=== PATIENT | female | born 1985 | race Asian ===

== ENCOUNTER 2016-05-03 22:03 | Emergency (ER) | payer MEDICAID ==
[~2016-05-03] VITALS: Ht 175.3 cm; Wt 149.7 kg
[2016-05-03 22:50] LABS: Basophils # (auto) 0 uL; Basophils % (auto) 0.2 % (0.0-2.0); Eosinophils # (auto) 0.4 uL; Eosinophils % (auto) 3.6 % (0.0-7.0); Hemoglobin 15.5 g/dL (12.2-16.2); Lymphocytes # (auto) 1.5 uL; Lymphocytes % (auto) 14.7 % (10.0-50.0); Mean Corpuscular Hemoglobin 27.8 pg (28.0-32.0); Mean Corpuscular Hgb Conc. 32.3 g/dL (32.0-36.0); Mean Platelet Volume 8.1 fL (7.4-10.4); Monocytes # (auto) 0.6 uL; Monocytes % (auto) 5.3 % (0.0-12.0); Neutrophils % (auto) 76.2 % (37.0-80.0); Platelet Count (auto) 414 10^3/uL (140-450); Red Cell Distribution Width 13.2 % (11.6-16.0); White Blood Cell 10.6 10^3/uL (4.4-10.8)
[2016-05-03 23:09] LABS: Albumin 3.6 g/dL (3.4-5.0); BUN/Creatinine Ratio 19.5; Calcium 8.8 mg/dL (8.5-10.1); Potassium 3.6 mmol/L (3.5-5.1)
[2016-05-03 23:12] LABS: Bilirubin, Total 0.3 mg/dL (0.2-1.0); Total Protein 7.6 g/dL (6.4-8.2)
[2016-05-03 23:37] LABS: Urine Bilirubin Negative (Negative); Urine Blood Negative /uL (Negative); Urine Ca Oxalate Crystal MANY (None Seen); Urine Color Yellow (Yellow); Urine Glucose Normal (Normal); Urine Granular Cast FEW /lpf (0); Urine Hyaline Cast FEW /lpf (0 - 2); Urine Ketone Negative (Negative); Urine Mucus FEW (None Seen); Urine Nitrite Negative (Negative); Urine RBC 3 /hpf (0 - 4); Urine Squamous Epithelial Cell FEW /hpf (<5); Urine Urobilinogen Normal (Negative); Urine pH 5.5 (5.0-8.0)
[2016-05-04 03:47] VITALS: BP 145/81
[2016-05-04] MEDS ORDERED: ONDANSETRON HCL 4 MG/2 ML VIAL IV ONE (04:15)
[2016-05-04] MEDS ORDERED: SODIUM CHLORIDE 0.9% 1,000 ML IV ONE (04:15)
== END 2016-05-04 06:11 | disposition home or self-care (01) ==
LOC: ER 22:05
DX: K52.9 Noninfective gastroenteritis and colitis, unspecified (principal); E86.0 Dehydration; R73.9 Hyperglycemia, unspecified; I10 Essential (primary) hypertension; F12.10 Cannabis abuse, uncomplicated
CPT/HCPCS: 36415; 80053; 81001; 81025; 85025; 96361; 96374; 99285; J2405; J7030

== ENCOUNTER 2017-01-01 06:02 | Emergency (ER) | payer MEDICAID ==
[~2017-01-01] VITALS: Ht 175.3 cm; Wt 117.9 kg
[2017-01-01 06:24] VITALS: BP 135/68
[2017-01-01] MEDS ORDERED: KETOROLAC TROMETH 60MG/2ML VIAL IM ONE (07:00)
== END 2017-01-01 07:57 | disposition home or self-care (01) ==
LOC: ER 06:02
DX: S32.2XXA Fracture of coccyx, initial encounter for closed fracture (principal); E27.8 Other specified disorders of adrenal gland; I10 Essential (primary) hypertension; W17.89XA Other fall from one level to another, initial encounter; Y93.01 Activity, walking, marching and hiking; Y99.8 Other external cause status; Y92.89 Other specified places as the place of occurrence of the external cause
CPT/HCPCS: 72131; 81025; 96372; 99284; J1885

== ENCOUNTER 2018-05-17 10:16 | Emergency (ER) | payer MEDICAID ==
[~2018-05-17] VITALS: Ht 175.3 cm; Wt 127.0 kg
[2018-05-17 11:06] VITALS: BP 157/97
[2018-05-17] MEDS ORDERED: KETOROLAC TROMETH 60MG/2ML VIAL IM ONE (11:45)
[2018-05-17] MEDS ORDERED: HYDROcodone-ACET 5/325MG TAB PO ONE (12:30)
== END 2018-05-17 12:37 | disposition home or self-care (01) ==
LOC: ER 10:16
DX: M54.42 Lumbago with sciatica, left side (principal)
CPT/HCPCS: 96372; 99283; J1885

== ENCOUNTER 2021-10-14 12:29 | Emergency (ER) | payer MEDICAID ==
[~2021-10-14] VITALS: Ht 175.3 cm; Wt 160.0 kg
[2021-10-14 13:23] LABS: Basophils # (auto) 0.1 10 ^3/uL (0-0.2); Basophils % (auto) 0.6 % (0.0-2.0); Eosinophils # (auto) 0.2 10 ^3/uL (0-0.8); Eosinophils % (auto) 2.2 % (0.0-7.0); Hematocrit 43.9 % (36.0-46.0); Hemoglobin 14.5 g/dL (12.2-16.2); Lymphocytes # (auto) 1.5 10 ^3/uL (0.4-5.4); Lymphocytes % (auto) 16.9 % (10.0-50.0); Mean Corpuscular Hemoglobin 27.8 pg (28.0-32.0); Mean Corpuscular Hgb Conc. 32.9 g/dL (32.0-36.0); Mean Corpuscular Volume 84.4 fL (80.0-100.0); Monocytes # (auto) 0.5 10 ^3/uL (0-1.3); Monocytes % (auto) 5.4 % (0.0-12.0); Neutrophils # (auto) 6.8 10 ^3/uL (1.6-8.6); Neutrophils % (auto) 74.9 % (37.0-80.0); Red Cell Distribution Width 13.1 % (11.8-14.3); White Blood Cell 9.1 10^3/uL (4.4-10.8)
[2021-10-14 13:57] LABS: Albumin 3.4 g/dL (3.4-5.0); Calcium 8.1 mg/dL (8.5-10.1); Potassium 3.6 mmol/L (3.5-5.1)
[2021-10-14 14:00] LABS: BUN/Creatinine Ratio 13.8; Bilirubin, Total 0.5 mg/dL (0.2-1.0); Total Protein 7.1 g/dL (6.4-8.2)
[2021-10-14 14:01] VITALS: BP 110/56
[2021-10-14 15:18] LABS: Urine Bacteria NONE SEEN /hpf (None Seen); Urine Blood TRACE /uL (Negative); Urine Hyaline Cast FEW /lpf (0 - 2); Urine Mucus FEW (None Seen); Urine Specific Gravity 1.027 (1.001-1.035); Urine WBC 3 /hpf (0 - 5)
== END 2021-10-14 16:07 | disposition home or self-care (01) ==
LOC: ER 12:29 → EDBD 12:29 → ER 16:07
DX: R07.89 Other chest pain (principal); F41.8 Other specified anxiety disorders; I10 Essential (primary) hypertension
CPT/HCPCS: 36415; 71045; 80053; 81001; 83735; 84484; 85025; 93005

== ENCOUNTER 2021-12-07 07:52 | Emergency (ER) | payer MEDICAID ==
[~2021-12-07] VITALS: Ht 175.3 cm; Wt 142.4 kg
[2021-12-07] MEDS ORDERED: AMOX-277 PO (08:28)
[2021-12-07 09:56] VITALS: BP 112/78
== END 2021-12-07 08:28 | disposition home or self-care (01) ==
LOC: ER 07:52
DX: J06.9 Acute upper respiratory infection, unspecified (principal); R91.1 Solitary pulmonary nodule; F41.9 Anxiety disorder, unspecified; I10 Essential (primary) hypertension; Z20.822 Contact with and (suspected) exposure to COVID-19
CPT/HCPCS: 36415; 71045

== ENCOUNTER 2023-07-10 08:46 | Emergency (ER) | payer MEDICAID ==
[~2023-07-10] VITALS: Ht 175.3 cm; Wt 145.3 kg
[~2023-07-10 08:46] MED LIST: AMOX875T4 PO
[2023-07-10] MEDS ORDERED: GUAI1SOL3 PO (10:38)
[2023-07-10] MEDS ORDERED: AZIT-185 PO (10:38)
[2023-07-10] MEDS ORDERED: FLUT1SPR5 (10:38)
[2023-07-10] MEDS ORDERED: CETI5TAB6 PO (10:38)
[2023-07-10 11:00] VITALS: BP 138/63; PULSE 80; RESP 18; TEMP 99.1; O2SAT 95
[2023-07-10] MEDS ORDERED: BENZ100C97 PO (12:37)
[2023-07-10] MEDS ORDERED: PROM1SOL4 PO (12:37)
== END 2023-07-10 12:51 | disposition home or self-care (01) ==
LOC: ER 08:46
DX: J20.9 Acute bronchitis, unspecified (principal); I10 Essential (primary) hypertension

== ENCOUNTER 2024-01-26 14:29 | Emergency (ER) | payer MEDICAID ==
[~2024-01-26] VITALS: Ht 175.3 cm; Wt 144.5 kg
[~2024-01-26 14:29] MED LIST changes: +AZIT-185 PO; +BENZ100C97 PO; +CETI5TAB6 PO; +CLIN2CRE7 VG; +FLUT1SPR5; +GUAI1SOL3 PO; +MET500T PO; +PROM1SOL4 PO
--- NOTE | 2024-01-26 16:09 | ED.PDOC ---
History of present illness HPI Comments This is a 38-year-old female who comes into the ED with chief complain of hyperglycemia. She has a past medical history relevant for type 2 diabetes, hypertension, hyperlipidemia, morbid obesity, anxiety.. She has a tubal ligation, LMP was last month, she is irregular. Patient states that her fingerstick glucose yesterday was around the 300s, and today was on the 200s, she stated that she ran out of her Ozempic and is currently only taking metformin a 1000 mg p.o. b.i.d.. Besides that she is also complaining of dysuria, urinary frequency and urgency. She is also having a mild headache, she stated that she suffers on migraine. She currently denies any significant chest pain, shortness of breath, dizziness, lightheadedness, abdominal pain, nausea, vomiting, diarrhea, constipation. Chief Complaint: Hyperglycemia Time Seen by MD: 14:50 Primary Care Provider: AILYN History of present illness: Nurses Notes Allergies: Coded Allergies: NO KNOWN ALLERGIES (Unverified , 05/19/12) Home Meds Active Scripts Clindamycin Phosphate (Clindamycin Phosphate) 2 % Cre, 1 APPLIC VG QPM for 7 Days, #40 GRAMS Prov:RAMA RODRIGUEZ PAC 07/30/23 Metronidazole (Metronidazole) 500 Mg Tab, 500 MG PO BID for 7 Days, #14 TAB Prov:RAMA RODRIGUEZ PAC 07/30/23 Benzonatate (Benzonatate) 100 Mg Cap, 1 CAP PO TID for 10 Days, #30 CAP 0 Refills Prov:KIMBERLY BALTAZAR NP 07/10/23 Promethazine-Dm (Promethazine Dm 6.25-15 mg/5Ml) 1 Armida Armida, 5 ML PO TID for 10 Days, #150 ML 0 Refills Prov:KIMBERLY BALTAZAR NP 07/10/23 Cetirizine Hcl (Cetirizine Hcl) 5 Mg Tab, 10 MG PO DAILY for 30 Days, #60 TAB 1 Refill Prov:KIMBERLY BALTAZAR NP 07/10/23 Fluticasone Propionate (Nasal) (Flonase Allergy Relief) 50 Mcg/Act Spr, 50 MCG NA DAILY for 30 Days, #1 BOTTLE 1 Refill Prov:KIMBERLY BALTAZAR NP 07/10/23 Azithromycin (ZITHROMAX TABLET) 250 Mg Tb, 250 MG PO DAILY for 5 Days, #6 TAB 0 Refills Take 2 tablets on day one then 1 tablet daily for the remaining course Prov:KIMBERLY BALTAZAR ACCOUNTING SYSTEMS MANAGER 07/10/23 Amoxicillin & Pot Clavulanate (Amoxicillin/Potassium Cla) 875 Mg Tab, 1 TAB PO BID for 7 Days, #14 TAB 0 Refills Prov:SYED SORENSON 12/07/21 Reported Medications Guaifenesin-Codeine (Codeine/Guaifenesin 100-10 mg/5Ml) 1 Armida Armida, 5 ML PO BIDP PRN for 5 Days, #50 ML 0 Refills 07/10/23 Information Source: Patient Mode of Arrival: Ambulatory Past Medical History PAST MEDICAL HISTORY: Anxiety, DM, HTN Surgical History: Denies all surgeries MEDIA RELATIONS INTERN History: No Pertinent MEDIA RELATIONS INTERN History Family History Family History: No family hx of Cancer, No family hx of DM, No family hx of HTN Social History Smoker: Non-Smoker Alcohol: Occasionally Drugs: Denies Drug Use Lives In: Home Constitutional: denies: chills, diaphoresis, fatigue, fever, malaise, sweats, weakness, others EENTM: denies: blurred vision, double vision, ear bleeding, ear discharge, ear drainage, ear pain, ear ringing, eye pain, eye redness, hearing loss, mouth pain, mouth swelling, nasal discharge, nose bleeding, nose congestion, nose pain, photophobia, tearing, throat pain, throat swelling, voice changes, others Respiratory: denies: cough, hemoptysis, orthopnea, SOB at rest, shortness of breath, SOB with excertion, stridor, wheezing, others Cardiovascular: denies: chest pain, dizzy spells, diaphoresis, Dyspnea on exertion, edema, irregular heart beat, left arm pain, lightheadedness, palpitations, PND, syncope, others Gastrointestinal: denies: abdomen distended, abdominal pain, blood streaked bowels, constipated, diarrhea, dysphagia, difficulty swallowing, hematemesis, melena, nausea, poor appetite, poor fluid intake, rectal bleeding, rectal pain, vomiting, others Genitourinary: reports: burning, dysuria, flank pain, frequency, urgency; denies: abnormal vagina bleeding, dyspareunia, hematuria, incontinence, pain, , vagina discharge, others Neurological: denies: dizziness, fainting, headache, left sided numbness, left sided weakness, numbness, paresthesia, pre-existing deficit, right sided numbness, right sided weakness, seizure, speech problems, tingling, tremors, weakness, others Musculoskeletal: denies: back pain, gout, joint pain, joint swelling, muscle pain, muscle stiffness, neck pain, others Integumetry: denies: bruises, change in color, change in hair/nails, dryness, laceration, lesions, lumps, rash, wounds, others Allergic/Immunocompromised: denies: Difficulty Healing, Frequent Infections, Hives, Itching, others Hematologic/Lymphatic: denies: anemia, blood clots, easy bleeding, easy bruising, swollen glands, others Endocrine: denies: excessive hunger, excessive sweating, excessive thirst, excessive urination, flushing, intolerance to cold, intolerance to heat, unexplained weight gain, unexplained weight loss, others Psychiatric: denies: anxiety, bipolar disorder, depression, hopeless, panic disorder, schizophrenia, sleepless, suicidal, others Physical Exam General Appearance: No Apparent Distress, Normal HEENT: Normal ENT Inspection, Pharynx Normal, TMs Normal Neck: Full Range of Motion, Non-Tender, Normal, Normal Inspection Respiratory: Chest Non-Tender, Lungs Clear, No Accessory Muscle Use, No Respiratory Distress, Normal Breath Sounds Cardiovascular: No Edema, No JVD, No Murmur, No Gallop, Normal Peripheral Pulses, Regular Rate/Rhythm Breast Exam: Deferred Gastrointestinal: No Organomegaly, Non Tender, No Pulsatile Mass, Normal Bowel Sounds, Soft Genitalia: Deferred Pelvic: Deferred Rectal: Deferred Extremities: No calf tenderness, Normal capillary refill, Normal inspection, Normal range of motion, Non-tender, No pedal edema Neurologic: Alert, audio visual secretary II-XII nml as Tested, No Motor Deficits, Normal Affect, Normal Mood, No Sensory Deficits Cerebellar Function: Normal Reflexes: NOT DONE Skin: Dry, Normal Color, Warm Lymphatic: No Adenopathy Was a procedure done? Was a procedure done?: No Differential Diagnosis (DM) Differential Diagnosis: Electrolyte Abnormality, Hyperglycemia, UTI X-Ray, Labs, Meds, VS Vital Signs Date Time Temp Pulse Resp B/P (MAP) Pulse Ox O2 Delivery O2 Flow Rate FiO2 01/26/24 16:36 98.5 82 18 125/79 (94) 95 98.5 118/24 16:36 82 18 95 Room Air 01/26/24 15:44 98.2 94 17 150/88 (108) 98 98.2 01/26/24 15:36 98.2 84 20 150/88 (108) 98 Lab Test 01/26/24 16:30 01/26/24 16:15 01/26/24 15:27 Range/Units Urine Color Light-yellow Yellow Urine Clarity Clear Clear Urine pH 5.5 5.0-9.0 Urine Specific [place] 1.020 1.001-1.035 Urine Protein Trace H Negative Urine Ketones Negative Negative Urine Blood Negative Negative /uL Urine Nitrite Negative Negative Urine Bilirubin Negative Negative Urine Urobilinogen Normal Negative mg/dL Urine Leukocyte Esterase Negative Negative /uL Urine RBC 2 0 - 4 /hpf Urine WBC 1 0 - 5 /hpf Urine Squamous Epithelial Cells Few <5 /hpf Urine Bacteria None seen None Seen /hpf Urine Hyaline Casts Few 0 - 2 /lpf Urine Mucus Few None Seen Urine Glucose Normal Normal mg/dL White Blood Count 11.8 H 4.4-10.8 10^3/uL Red Blood Count 5.14 4.0-5.20 10^6/uL Hemoglobin 15.4 12.2-16.2 g/dL Hematocrit 44.2 36.0-46.0 % Mean Corpuscular Volume 85.9 80.0-100.0 fL Mean Corpuscular Hemoglobin 30.0 28.0-32.0 pg Mean Corpuscular Hemoglobin Concent 34.9 32.0-36.0 g/dL Red Cell Distribution Width 13.1 11.8-14.3 % Platelet Count 383 140-450 10^3/uL Mean Platelet Volume 8.3 6.9-10.8 fL Neutrophils (%) (Auto) 68.5 37.0-80.0 % Lymphocytes (%) (Auto) 20.7 10.0-50.0 % Monocytes (%) (Auto) 7.8 0.0-12.0 % Eosinophils (%) (Auto) 2.4 0.0-7.0 % Basophils (%) (Auto) 0.6 0.0-2.0 % Neutrophils # (Auto) 8.1 1.6-8.6 10 ^3/uL Lymphocytes # (Auto) 2.4 0.4-5.4 10 ^3/uL Monocytes # (Auto) 0.9 0-1.3 10 ^3/uL Eosinophils # (Auto) 0.3 0-0.8 10 ^3/uL Basophils # (Auto) 0.1 0-0.2 10 ^3/uL Nucleated Red Blood Cells 0.1 % Sodium Level 136 136-145 mmol/L Potassium Level 3.8 3.5-5.1 mmol/L Chloride Level 100 98-107 mmol/L Carbon Dioxide Level 28 20-31 mmol/L Anion Gap 8 5-15 Blood Urea Nitrogen 14 9-23 mg/dL Creatinine 0.81 0.550-1.02 mg/dL Glomerular Filtration Rate Calc 96 >90 mL/min BUN/Creatinine Ratio 17.3 10.0-20.0 Serum Glucose 171 H 74-106 mg/dL Calcium Level 10.6 H 8.7-10.4 mg/dL POC Glucose 146 H 70-106 mg/dl Current Medications Medications (Trade) Dose Ordered Sig/Christian Route Start Time Stop Time Status Last Admin Ketorolac Tromethamine (Toradol Injection) 60 mg ONCE ONCE IM 01/26/24 16:00 01/26/24 16:01 DC 01/26/24 16:40 On my initial examination, patient is in no apparent distress, she is complain of polyuria, urinary symptoms, she has right CVA tenderness, we will order a CBC, BNP, UA, prescribe Toradol IM for her headache. We will continue to reassess. On reassessment, patient stated feeling better, CBC was unremarkable, BNP demonstrated hyperglycemia and mild hypercalcemia, which is asymptomatic, UA was unremarkable, patient will be discharged home and continue home medications, she was encouraged to follow with her PCP within one week, counseled her on lifestyle modifications, stress relieving activities, low-fat diet, low-salt diet, avoid simple sugars, patient verbalized understanding and agreed with the plan. Images Reviewed?: Images reviewed and evaluated by me Time of 1ST Reevaluation: 15:57 Reevaluation 1ST: Unchanged Time of 2ND Reevaluation: 17:30 Reevaluation 2ND: Improved Patient Education/Counseling: Diagnosis, Treatment Family Education/Counseling: No Family Present Departure 1 Departure Time of Disposition: 17:44 Impression: Primary Impression: Hyperglycemia Additional Impressions: Anxiety reaction Type 2 diabetes mellitus Essential hypertension Hyperlipidemia Sleep apnea Disposition: 01 HOME / SELF CARE / HOMELESS Condition: Stable Critical Care Note Critical Care Time?: No Stability Stability form required: No Heart Score Heart Score: Heart Score Response (Comments) Value History N/A 0 EKG N/A 0 Age N/A 0 Risk Factors N/A 0 Troponin N/A 0 Total 0 FAITH RENE RESIDENT Jan 26, 2024 16:09
[2024-01-26] MEDS: KETOROLAC TROMETH 60MG/2ML VIAL IM ONE (16:40)
[2024-01-26 16:41] LABS: Chloride 100 mmol/L (98-107); Potassium 3.8 mmol/L (3.5-5.1); Sodium 136 mmol/L (136-145)
[2024-01-26 16:42] LABS: Anion Gap 8 (5-15); Carbon Dioxide 28 mmol/L (20-31)
[2024-01-26 16:43] LABS: Calcium 10.6 mg/dL (8.7-10.4)
[2024-01-26 16:47] LABS: BUN/Creatinine Ratio 17.3 (10.0-20.0); Blood Urea Nitrogen 14 mg/dL (9-23); Glucose 171 mg/dL (74-106)
[2024-01-26 16:49] LABS: Basophils # (auto) 0.1 10 ^3/uL (0-0.2); Basophils % (auto) 0.6 % (0.0-2.0); Eosinophils # (auto) 0.3 10 ^3/uL (0-0.8); Eosinophils % (auto) 2.4 % (0.0-7.0); Hematocrit 44.2 % (36.0-46.0); Hemoglobin 15.4 g/dL (12.2-16.2); Lymphocytes # (auto) 2.4 10 ^3/uL (0.4-5.4); Lymphocytes % (auto) 20.7 % (10.0-50.0); Mean Corpuscular Hgb Conc. 34.9 g/dL (32.0-36.0); Mean Corpuscular Volume 85.9 fL (80.0-100.0); Monocytes # (auto) 0.9 10 ^3/uL (0-1.3); Monocytes % (auto) 7.8 % (0.0-12.0); Neutrophils # (auto) 8.1 10 ^3/uL (1.6-8.6); Neutrophils % (auto) 68.5 % (37.0-80.0); Nucleated Red Blood Cells % 0.1 %; Platelet Count (auto) 383 10^3/uL (140-450); Red Blood Cells 5.14 10^6/uL (4.0-5.20); Red Cell Distribution Width 13.1 % (11.8-14.3); White Blood Cell 11.8 10^3/uL (4.4-10.8)
[2024-01-26 16:58] LABS: Urine Bacteria None Seen /hpf (None Seen)
[2024-01-26 17:04] LABS: Urine Blood Negative /uL (Negative); Urine Clarity Clear (Clear); Urine Color Light-Yellow (Yellow); Urine Hyaline Cast FEW /lpf (0 - 2); Urine Mucus FEW (None Seen); Urine Protein, UAD TRACE (Negative); Urine Urobilinogen Normal (Negative); Urine WBC 1 /hpf (0 - 5); Urine pH 5.5 (5.0-9.0)
[2024-01-26 18:06] VITALS: BP 134/88; PULSE 74; RESP 14; TEMP 97.8; O2SAT 95
== END 2024-01-26 18:07 | disposition home or self-care (01) ==
LOC: ER 14:29
DX: E11.65 Type 2 diabetes mellitus with hyperglycemia (principal); E78.5 Hyperlipidemia, unspecified; F41.1 Generalized anxiety disorder; G47.30 Sleep apnea, unspecified; I10 Essential (primary) hypertension
CPT/HCPCS: 36415; 80048; 81001; 82962; 85025; 96372; 99283; J1885

== ENCOUNTER 2024-12-07 05:10 | Emergency (ER) | payer MEDICAID ==
[~2024-12-07] VITALS: Ht 175.3 cm; Wt 150.0 kg
--- NOTE | 2024-12-07 06:35 | DVH ---
INDICATION: low back pain TECHNIQUE: Frontal and lateral views of the lumbar spine were obtained. COMPARISON: None FINDINGS: . There are no fractures or subluxations. Vertebral body heights and disc spaces are well m aintained. Paravertebral soft tissues are unremarkable. IMPRESSION: 1. Of the visualized spine, there is no evidence for fracture or subluxation.
--- NOTE | 2024-12-07 06:41 | ED.PDOC ---
Back pain HPI HPI Comments A 39-YEAR-OLD FEMALE PRESENTS TO ER FOR LOWER BACK PAIN. PT STATES SHE HAS HX OF CHRONIC LOWER BACK PAIN DUE TO DDD. ONE WEEK AGO, SHE STARTED HAVING LOWER BACK PAIN AGAIN AND THE MOVEMENT INCREASES THE PAIN. PT DENIES FALL INJURY, URINATION PROBLEMS, FEVER, ABD PAIN, NAUSEA, VOMITING AND OTHER COMPLAINTS. NO OTHER SYMPTOMS REPORTED AT THIS TIME OF CARE. PT IS ALERT, ORIENTATION X4 WITH NORMAL GAIT. Chief Complaint: Back Pain Time Seen by MD: 06:26 Primary Care Provider: AILYN Reviewed Notes: Nurses Notes, Medications, Allergies Allergies: Coded Allergies: NO KNOWN ALLERGIES (Unverified , 05/19/12) Home Meds Active Scripts Methocarbamol (Methocarbamol) 750 Mg Tab, 750 MG PO BID, #20 TAB Prov:EVANGELINA VALENZUELA 12/07/24 Ibuprofen (Ibuprofen) 800 Mg Tab, 1 TAB PO TID, #30 TAB Prov:EVANGELINA VALENZUELA 12/07/24 Clindamycin Phosphate (Clindamycin Phosphate) 2 % Cre, 1 APPLIC VG QPM for 7 Days, #40 GRAMS Prov:RAMA RODRIGUEZ PAC 07/30/23 Metronidazole (Metronidazole) 500 Mg Tab, 500 MG PO BID for 7 Days, #14 TAB Prov:RAMA RODRIGUEZ PAC 07/30/23 Benzonatate (Benzonatate) 100 Mg Cap, 1 CAP PO TID for 10 Days, #30 CAP 0 R efills Prov:KIMBERLY BALTAZAR NP 07/10/23 Promethazine-Dm (Promethazine Dm 6.25-15 mg/5Ml) 1 Armida Armida, 5 ML PO TID for 10 Days, #150 ML 0 Refills Prov:KIMBERLY BALTAZAR NP 07/10/23 Cetirizine Hcl (Cetirizine Hcl) 5 Mg Tab, 10 MG PO DAILY for 30 Days, #60 TAB 1 Refill Prov:KIMBERLY BALTAZAR NP 07/10/23 Fluticasone Propionate (Nasal) (Flonase Allergy Relief) 50 Mcg/Act Spr, 50 MCG NA DAILY for 30 Days, #1 BOTTLE 1 Refill Prov:KIMBERLY BALTAZAR NP 07/10/23 Azithromycin (ZITHROMAX TABLET) 250 Mg Tb, 250 MG PO DAILY for 5 Days, #6 TAB 0 Refills Take 2 tablets on day one then 1 tablet daily for the remaining course Prov:DELANEYDANILO CALDERÓNLenny Winter BULB INSPECTOR 07/10/23 Amoxicillin & Pot Clavulanate (Amoxicillin/Potassium Cla) 875 Mg Tab, 1 TAB PO BID for 7 Days, #14 TAB 0 Refills Prov:SYED SORENSON 12/07/21 Reported Medications Guaifenesin-Codeine (Codeine/Guaifenesin 100-10 mg/5Ml) 1 Armida Armida, 5 ML PO BIDP PRN for 5 Days, #50 ML 0 Refills 07/10/23 Information Source: Patient Mode of Arrival: Ambulatory Timing: Days Duration: Since onset, Days Location of Back pain: (B) Lower back Severity: Moderate Prehospital treatment: None Quality: Aching, Cramping Onset: Spontaneous History of: Chronic Back Pain Modifying Factors: Movement Associated signs and symptoms: None Past Medical History PAST MEDICAL HISTORY: Anxiety, DM, HTN Past Medical History (Other): CHRONIC LOW BACK PAIN Surgical History: Denies all surgeries [employer]FI[employer] G[employer] PLANT FIELD TECHNICIAN History: No Pertinent [employer]ANT FIELD TECHNICIAN History Family History Family History: No family hx of Cancer, No family hx of DM, No family hx of HTN Social History Smoker: Non-Smoker Alcohol: Occasionally Drugs: Denies Drug Use Lives In: Home Constitutional: denies: chills, diaphoresis, fatigue, fever, malaise, sweats, weakness, others EENTM: denies: blurred vision, double vision, ear bleeding, ear discharge, ear drainage, ear pain, ear ringing, eye pain, eye redness, hearing loss, mouth pain, mouth swelling, nasal discharge, nose bleeding, nose congestion, nose pain, photophobia, tearing, throat pain, throat swelling, voice changes, others Respiratory: denies: cough, hemoptysis, orthopnea, SOB at rest, shortness of breath, SOB with excertion, stridor, wheezing, others Cardiovascular: denies: chest pain, dizzy spells, diaphoresis, Dyspnea on exertion, edema, irregular heart beat, left arm pain, lightheadedness, palpitations, PND, syncope, others Gastrointestinal: denies: abdomen distended, abdominal pain, blood streaked bowels, constipated, diarrhea, dysphagia, difficulty swallowing, hematemesis, melena, nausea, poor appetite, poor fluid intake, rectal bleeding, rectal pain, vomiting, others Genitourinary: denies: abnormal vagina bleeding, burning, dyspareunia, dysuria, flank pain, frequency, hematuria, incontinence, pain, , vagina discharge, urgency, others Neurological: denies: dizziness, fainting, headache, left sided numbness, left sided weakness, numbness, paresthesia, pre-existing deficit, right sided numbness, right sided weakness, seizure, speech problems, tingling, tremors, weakness, others Musculoskeletal: reports: back pain, muscle pain; denies: gout, joint pain, joint swelling, muscle stiffness, neck pain, others Integumetry: denies: bruises, change in color, change in hair/nails, dryness, laceration, lesions, lumps, rash, wounds, others Allergic/Immunocompromised: denies: Difficulty Healing, Frequent Infections, Hives, Itching, others Hematologic/Lymphatic: denies: anemia, blood clots, easy bleeding, easy bruising, swollen glands, others Endocrine: denies: excessive hunger, excessive sweating, excessive thirst, excessive urination, flushing, intolerance to cold, intolerance to heat, unexplained weight gain, unexplained weight loss, others Psychiatric: reports: anxiety; denies: bipolar disorder, depression, hopeless, panic disorder, schizophrenia, sleepless, suicidal, others All Other Systems: Reviewed and Negative Physical Exam General Appearance: No Apparent Distress, Obese HEENT: Normal ENT Inspection, PERRL/EOMI, Pharynx Normal, TMs Normal Neck: Full Range of Motion, Non-Tender, Normal, Normal Inspection Respiratory: Chest Non-Tender, Lungs Clear, No Accessory Muscle Use, No Respiratory Distress, Normal Breath Sounds Cardiovascular: No Edema, No JVD, No Murmur, No Gallop, Normal Peripheral Pulses, Regular Rate/Rhythm Breast Exam: Deferred Gastrointestinal: No Organomegaly, Non Tender, No Pulsatile Mass, Normal Bowel Sounds, Soft Genitalia: Deferred Pelvic: Deferred Rectal: Deferred Extremities: No calf tenderness, Normal capillary refill, Normal inspection, Normal range of motion, Non-tender, No pedal edema Musculoskeletal : Location: Bilateral Extremity Location: Back Apperance: Tenderness: Moderate (TENDERNESS AND MUSCLE SPASM ON LOW BACK, NO BONY TENDERNESS, SWELLING AND DEFORMITY. ) Neurologic: Alert, house admin II-XII nml as Tested, No Motor Deficits, Normal Affect, Normal Mood, No Sensory Deficits Cerebellar Function: Normal Reflexes: Normal Skin: Dry, Normal Color, Warm Peripheral Pulses: 2+ carotid (R), 2+ carotid (L), 2+ dorsalis pedis (R), 2+ dorsalis pedis (L) Lymphatic: No Adenopathy Was a procedure done? Was a procedure done?: No Back Pain Differential Dx Differential Diagnosis: Musculoskeletal Pain, Strain, Other (CHRONIC LOW BACK PAIN EXACERBATION ) X-Ray, Labs, Meds, VS Vital Signs Date Time Temp Pulse Resp B/P (MAP) Pulse Ox O2 Delivery O2 Flow Rate FiO2 12/07/24 05:10 98.3 96 20 143/78 93 98.3 Lab Test 12/07/24 05:23 Range/Units Urine Color Yellow Yellow Urine Clarity Clear Clear Urine pH 7.0 5.0-9.0 Urine Specific [place] 1.020 1.001-1.035 Urine Protein 2+ H Negative Urine Ketones Negative Negative Urine Blood Negative Negative /uL Urine Nitrite Negative Negative Urine Bilirubin Negative Negative Urine Urobilinogen 2 H Negative mg/dL Urine Leukocyte Esterase Negative Negative /uL Urine RBC 1 0 - 4 /hpf Urine Microscopic WBC 1 0-5 /HPF Urine Squamous Epithelial Cells Few <5 /hpf Urine Bacteria None seen None Seen /hpf Urine Glucose 1+ H Normal mg/dL PATIENT: DAVID ESPINOZA SISONACCT: [id number]: [id number] : 1985 LOC: ER ROOM / BED: / AGE / SEX: 39 / F ADM STATUS: REG ER SERVICE 0530 ORDERING PHYSICIAN: RADHA FOREMAN PROCEDURE(s): LUMB2 - LUMBAR SPINE 3 VIEW REASON: low back pain ORDER NUMBER(s): [id number], ACCESSION NUMBER(s): [id number] INDICATION: low back pain TECHNIQUE: Frontal and lateral views of the lumbar spine were obtained. COMPARISON: None FINDINGS: . There are no fractures or subluxations. Vertebral body heights and disc spaces are well maintained. Paravertebral soft tissues are unremarkable. IMPRESSION: 1. Of the visualized spine, there is no evidence for fracture or subluxation. ATED BY: NICHOLE OTERO MD DICTATED DATE/TIME: 12/07/24631 SIGNED BY: NICHOLE OTERO MD SIGNED DATE/TIME: 12/07/24631 CC: X-Ray, Labs, Meds, VS Comment UA: NORMAL TREATMENT: TORADOL 60MG IM Time of 1ST Reevaluation: 07:40 Reevaluation 1ST: Improved Patient Education/Counseling: Diagnosis, Treatment, Need For Follow Up Family Education/Counseling: Diagnosis, Treatment, No Family Present Medical Screening: No EMC Exist At This Time SEPSIS Sepsis Screen Date sepsis recognized/suspect: Dec 07, 2024 Time Sepsis recognized/suspect: 509 Recent Procedure: No On Antibiotic Therapy: No Respiratory Rate >20: No Heart Rate >90: No Temp<36 C (96.8 F) or >38.3 C: No SBP <90 or MAP <65 mmHG: No New Acute Mental Status Change: No Is the patient on CPAP, BIPAP,: No Physician Orders Lumbar Spine 3 View (12/07/24 05:30) Vital Signs Date Time Temp Pulse Resp B/P (MAP) Pulse Ox O2 Delivery O2 Flow Rate FiO2 12/07/24 05:10 98.3 96 20 143/78 93 98.3 Departure 1 Departure Time of Disposition: 07:40 Impression: Primary Impression: Acute exacerbation of chronic low back pain Additional Impression: Pain management Disposition: 01 HOME / SELF CARE / HOMELESS Condition: Stable Additional Instructions: F/U PCP IN 2 DAYS RECHECK. IF CONDITION BECOME WORSE, RETURN TO ED [facility]. e-Prescriptions Methocarbamol (Methocarbamol) 750 Mg Tab 750 MG PO BID, #20 TAB Prov: EVANGELINA VALENZUELA 12/07/24 Ibuprofen (Ibuprofen) 800 Mg Tab 1 TAB PO TID, #30 TAB Prov: EVANGELINA VALENZUELA 12/07/24 Discharged With: Self Critical Care Note Critical Care Time?: No Stability Stability form required: EVANGELINA Hamilton Dec 07, 2024 06:41
[2024-12-07 07:20] LABS: Urine Protein, UAD 2+ (Negative)
[2024-12-07] MEDS ORDERED: IBUP-1456 PO (07:29)
[2024-12-07] MEDS ORDERED: METH-1182 PO (07:29)
[2024-12-07] MEDS: KETOROLAC TROMETH 60MG/2ML VIAL IM ONE (07:30)
[2024-12-07 07:31] VITALS: BP 153/77; PULSE 78; RESP 15; TEMP 98; O2SAT 95
== END 2024-12-07 07:36 | disposition home or self-care (01) ==
LOC: ER 05:18
DX: G89.29 Other chronic pain (principal); M54.50 Low back pain, unspecified; F10.90 Alcohol use, unspecified, uncomplicated; F41.9 Anxiety disorder, unspecified; I10 Essential (primary) hypertension; E11.9 Type 2 diabetes mellitus without complications; Z79.1 Long term (current) use of non-steroidal anti-inflammatories (NSAID); Z79.899 Other long term (current) drug therapy; Y90.9 Presence of alcohol in blood, level not specified
CPT/HCPCS: 72100; 81001; 96372; 99284; J1885